=== PATIENT | female | born 1950 | race Caucasian/White ===

== ENCOUNTER → 2017-11-22 18:58 | Outpatient (CLI) | payer OTHER | END | disposition home or self-care (01) | LOC: D.MAMMO 14:15 | DX: Z12.31 Encounter for screening mammogram for malignant neoplasm of breast (principal) ==

== ENCOUNTER → 2018-06-27 10:33 | Outpatient (CLI) | payer MEDICARE | END | disposition home or self-care (01) | LOC: D.US 06-22 08:00 → D.NM 06-26 12:30 → D.US 10:00 | DX: R11.0 Nausea (principal); R10.13 Epigastric pain ==

== ENCOUNTER → 2018-12-29 07:46 | Outpatient (CLI) | payer MEDICARE ==
[2018-12-29 08:30] LABS: ALBUMIN 3.9 g/dL (3.4-5.0); BILIRUBIN - DIRECT 0.08 mg/dL (0.00-0.30); BILIRUBIN - INDIRECT 0.08 mg/dL (0.00-1.00); BILIRUBIN - TOTAL 0.16 mg/dL (0.2-1.3); PROTEIN - SERUM 7.5 g/dL (6.4-8.2)
== END | disposition home or self-care (01) ==
LOC: D.US 07:46
PROVIDERS: ATTEND Internal Medicine Gastroenterology
DX: K76.0 Fatty (change of) liver, not elsewhere classified (principal)

== ENCOUNTER 2020-03-18 19:00 | Outpatient (CLI) | payer MEDICARE | END 2020-03-18 23:59 | disposition home or self-care (01) | LOC: D.MAMMO 19:00 | PROVIDERS: ATTEND Family Medicine | DX: Z12.31 Encounter for screening mammogram for malignant neoplasm of breast (principal) ==

== ENCOUNTER → 2021-02-27 09:10 | Outpatient (CLI) | payer MEDICARE ==
--- NOTE | 2021-02-28 15:24 | EC ---
PATIENT:MONSERRAT GRANGER DATE OF SERVICE: 02/27/21 SEX: F MEDICAL RECORD: [id number] DATE OF : 54 LOCATION:D.[facility] AGE OF PATIENT: 70 ADMISSION DATE: 02/27/21 REFERRING PHYSICIAN: INTERPRETING PHYSICIAN: RYAN PLATT MD ECHOCARDIOGRAM REPORT ECHO CHARGES 4 ECHO COMPLETE Date: 02/27/21 CLINICAL DIAGNOSIS: ARTHRITIS ECHOCARDIOGRAPHIC MEASUREMENTS (adult normal given) AC root (d.<3.7cm) 3.1 cm LV Septum d (<1.2 cm> 0.7 cm Valve Excursion 1.6 cm LV Septum (systole) 0.8 cm Left Atria (s.<4.0cm> 2.8 cm LVPW d(<1.2cm) 0.8 cm RV (d.<2.3cm) 3.2 cm LVPW (sytole) 0.9 cm LV diastole(<5.6CM) 4.5 cm MV E-F(>70mm/sec) cm LV systole 3.7 cm LVOT Diameter 1.6 cm MV exc.(>10mm) 1.1 cm Est.ejection fraction (50-75%) % DOPPLER: LVIT cm/sec A 89 cm/sec E 75 cm/sec LA cm/sec RVSP 19 mmHg LVOT 102 cm/sec AOP1/2T m/s Asc. Ao 117 cm/sec RVOT 60 cm/sec RA cm/sec PA 79 cm/sec AV Gradient Peak 5.5 mmHg AV Mean 2.7 mmHg AV Area 2.3 cm MV Gradient Peak 3.3 mmHg MV Mean 1.6 mmHg MV Area cm COMMENTS: Charge Histotechnologist: Miguel Angel PEARCE Soccer Player: Kaia Urbano TAPE# Pericardial Effusion N DATE OF SERVICE: CLINICAL DIAGNOSIS: Arthritis. INTERPRETATION: Normal left ventricular chamber size and contractile function with ejection fraction of 55%. Left atrial chamber appears normal. Right atrium and right ventricular chamber size and function appears normal. Aortic valve appears normal. No aortic regurgitation. Mitral valve appears normal. Trace mitral regurgitation. Tricuspid valve appears normal. No tricuspid regurgitation. Pulmonic valve appears normal. No pulmonary insufficiency. No ECHOCARDIOGRAM REPORT [id number] MONSERRAT GRANGER pericardial effusion visualized. IMPRESSION: Normal left ventricular chamber size and contractile function with ejection fraction of 55%. TRANSINT:[id number] Voice Confirmation ID: [id number] DOCUMENT ID: [id number] RYAN PLATT MD at 1524 CC: [id number] DICTATION DATE: 02/28/21 1151 PUBLICATIONS DISTRIBUTION CLERK: 02/28/21 1218 DEP CLI 02/27/21 [place] [id number] [place] [id number]
== END | disposition home or self-care (01) ==
LOC: D.ECHO 09:10
PROVIDERS: ATTEND Family Medicine
DX: M19.90 Unspecified osteoarthritis, unspecified site (principal)